=== PATIENT | male | born 1965 | race Hispanic/Latino ===

== ENCOUNTER 2024-09-25 11:40 | Emergency (ER) | payer BC, OTHER, SELFPAY ==
[2024-09-25] MEDS ORDERED: Lidocaine 1% (PF) 30 ML VIAL ONE (12:09)
== END 2024-09-25 12:52 | disposition home or self-care (01) ==
LOC: NAV ERS 11:40
DX: S60.450A Superficial foreign body of right index finger, initial encounter (principal); E11.9 Type 2 diabetes mellitus without complications; Z79.01 Long term (current) use of anticoagulants; Z86.711 Personal history of pulmonary embolism; Z75.8 Other problems related to medical facilities and other health care; Z86.718 Personal history of other venous thrombosis and embolism; Z79.84 Long term (current) use of oral hypoglycemic drugs; W45.8XXA Other foreign body or object entering through skin, initial encounter
CPT/HCPCS: 10120